=== PATIENT | female | born 1975 | race Hispanic/Latino ===

== ENCOUNTER 2025-05-16 05:45 | Day surgery (SDC) | payer BC ==
[2025-05-14 09:10] LABS: Hematocrit 37.2 % (34.9-44.5); Hemoglobin 10.9 g/dL (12.0-15.5); Mean Corpuscular Hemoglobin 21.8 pg (27.0-33.0); Mean Corpuscular Volume 74.4 fL (81.6-98.3); Red Blood Cell (RBC) Count 5.00 10x6/uL (3.90-5.03); White Blood Cell (WBC) Count 8.41 10x3/uL (3.5-10.5)
[2025-05-14 09:12] LABS: Platelet Count 266 10x3/uL (150-450)
[2025-05-14 09:24] LABS: BHCG - Serum Negative (NEGATIVE); Pregs Control Background? CLEAR/WHITE (CLR/WHITE); Pregs Control Bar Appear? YES (CONTROL BAR)
[2025-05-14 09:58] VITALS: BMI 31.6
[2025-05-16] MEDS ORDERED: PROPOFOL 40 ML ONE (06:23)
[2025-05-16] MEDS ORDERED: SUGAMMADEX SODIUM 200 MG/2 ML VIAL ONE (06:24)
[2025-05-16] MEDS ORDERED: Rocuronium Bromide 10 MG/ML (10ML VIAL) ONE (06:24)
[2025-05-16] MEDS ORDERED: Gabapentin 300 MG CAP ONE (06:35)
[2025-05-16] MEDS ORDERED: Famotidine/PF 20 mg/2ml Vial ONE (06:35)
[2025-05-16] MEDS ORDERED: Bupivacaine HCl 0.5%/Epinephrine 1:200,000/PF 30 ml Vial ONE (06:50)
[2025-05-16] MEDS ORDERED: CEFAZOLIN 2 GM VIAL ONE (06:50)
[2025-05-16] MEDS ORDERED: metroNIDAZOLE 500 MG (100 mL) BAG ONE (07:19)
[2025-05-16] MEDS ORDERED: SUCCINYLCHOLINE/SOD CL,ISO/PF 200 MG/10 ML SYRINGE FS ONE (07:33)
[2025-05-16] MEDS ORDERED: diphenhydrAMINE 50 MG/ML VIAL ONE (07:39)
[2025-05-16] MEDS ORDERED: HYDROcodone/Acetaminophen 5/325 mg Tablet ONE (11:36)
== END 2025-05-16 13:10 | disposition home or self-care (01) ==
LOC: CSHSDC 05:45
PROVIDERS: ATTEND Obstetrics & Gynecology
PROC: 0UT74ZZ Resection of Bilateral Fallopian Tubes, Percutaneous Endoscopic Approach (ICD-10-PCS; principal; 2025-05-16)
PROC: 0UT94ZL Resection of Uterus, Supracervical, Percutaneous Endoscopic Approach (ICD-10-PCS; principal; 2025-05-16)
DX: N80.03 Adenomyosis of the uterus (principal); I10 Essential (primary) hypertension; D50.0 Iron deficiency anemia secondary to blood loss (chronic); E66.812 Obesity, class 2; Z68.33 Body mass index [BMI] 33.0-33.9, adult; Z98.51 Tubal ligation status; Z79.899 Other long term (current) drug therapy
CPT/HCPCS: 36415; 84703; 85027; 86850; 86900; 86901; 88307; J1100; J1200; J1308; J2250; J2371; J2704; S2900